=== PATIENT | female | born 1960 | race Caucasian/White ===

== ENCOUNTER 2024-06-10 18:10 | Outpatient (REF) | payer BC, SELFPAY ==
[2024-06-10 16:01] LABS: COVID-19 PCR Negative (Negative); Influenza A PCR Positive (Negative); Influenza B PCR Negative (Negative); RSV PCR Negative (Negative)
[2024-06-10 16:30] LABS: Source NASOPHARYNX
== END 2024-06-10 18:11 | disposition home or self-care (01) ==
LOC: LBN 18:10
PROVIDERS: Visit Provider Physician Assistant Medical
DX: J06.9 Acute upper respiratory infection, unspecified (principal)
CPT/HCPCS: 87637; 87070

== ENCOUNTER 2025-03-07 19:23 | Outpatient (REF) | payer BC, SELFPAY ==
[2025-03-07 21:03] LABS: HCT 41.7 % (36.0-46.0); HGB 14.3 g/dL (11.2-15.7); MCH 31.6 pg (27.0-33.0); MCHC 34.3 % (32.0-36.0); MCV 92 fL (80-95); MPV 10.4 fL (8.0-11.0); Platelet Count 309 10^3/uL (130-400); RBC 4.52 10^6/uL (3.93-5.22); RDW 12.0 % (11.7-14.6); RDW-SD 40.8 fL; WBC 6.31 10^3/uL (4.4-10.8)
[2025-03-07 21:20] LABS: ALT 26 U/L (14-59); AST 17 U/L (15-37); Albumin 3.7 g/dL (3.4-5.0); Alkaline Phosphatase 81 U/L (46-116); Anion Gap 8.6 mmol/L (3-11); BUN 20 mg/dL (7-18); Bilirubin, Total 0.2 mg/dL (0.2-1.0); CO2 29.4 mmol/L (21.0-32.0); Calcium 9.4 mg/dL (8.5-10.1); Chloride 99 mmol/L (98-107); Cholesterol 245 mg/dL (<200); Glucose 90 mg/dL (74-106); HDL Cholesterol 59 mg/dL (>or=50); Potassium 4.5 mmol/L (3.5-5.1); Sodium 137 mmol/L (136-145); TSH (W/Ref FT4) 0.83 uIU/mL (0.36-3.74); Total Protein 7.8 g/dL (6.4-8.2)
[2025-03-07 21:31] LABS: Hemoglobin A1C 5.2 % (<5.7)
== END 2025-03-07 19:24 | disposition home or self-care (01) ==
LOC: NCHCN 19:23
DX: Z13.1 Encounter for screening for diabetes mellitus (principal); E03.9 Hypothyroidism, unspecified; Z00.00 Encounter for general adult medical examination without abnormal findings
CPT/HCPCS: 80053; 80061; 85027; 83036; 84443

== ENCOUNTER → 2025-04-15 01:11 | Outpatient (CLI) | payer BC, SELFPAY ==
--- NOTE | 2025-04-15 08:30 | DI.MAMMO_ITS ---
Exam(s) MAMMO SCREENING EXAM: MAMMO SCREENING CLINICAL HISTORY: SCREENING, Z12.31 TECHNIQUE: Mammograms were interpreted according to the usual protocol including computer analysis with CAD system, tomosynthesis and C-view imaging. COMPARISON: 2018 through 2023 FINDINGS: The breasts are composed of mainly fatty density , Breast Density category A. No suspicious masses or suspicious microcalcifications are seen. No skin thickening or abnormal axillary lymph nodes are seen. There has been no significant change from prior exams. IMPRESSION: BI-RADS Category 1, Negative mammogram Yearly screening mammography is recommended. Breast Density- Category A - The breast are almost entirely fatty. Breast density Category C or D implies that the patient has dense breast tissue. Dense breast tissue can make it harder to find cancer on a mammogram. Dense breast tissue is also associated with an increased risk of breast cancer. This information about the result of the mammogram report was provided to the patient to raise their awareness. Use this report when you speak with the patient about their risks for breast cancer, which includes their family history. At that time, you may recommend additional screening tests (Ultrasound or MRI) as these tests may add significant information. A negative radiographic report should not delay biopsy if a dominant or clinically suspicious mass is present. Up to ten percent of cancers are not identified on mammography. A negative report may reinforce clinical impression. Adenosis and dense breasts may obscure an underlying neoplasm. False positive reports average 6 to 10%. Patient will receive a letter notifying them of these results.
== END ==
LOC: DI 01:11
DX: Z12.31 Encounter for screening mammogram for malignant neoplasm of breast (principal)
CPT/HCPCS: 77063; 77067